=== PATIENT | male | born 1970 | race Caucasian/White ===

== ENCOUNTER 2017-06-27 11:52 | Emergency (ER) | payer OTHER ==
[2017-06-27 12:02] VITALS: RESP 16; TEMP 98.6; O2SAT 95
--- NOTE | 2017-06-27 13:22 | EDPHY ---
H & P Stated Complaint: L ear w/diminished hearing, numbness L jaw/neck since yesterday HPI/ROS: CHIEF COMPLAINT: Left-sided hearing loss HISTORY OF PRESENT ILLNESS: This patient is a healthy 46 y/o male complaining of sudden onset left-sided hearing loss. Yesterday, he was travelling in [place] and woke unable to hear well out of his right ear. He has history of sinus infections but his symptoms did not feel similar to these. He flew back to [place], and denies any otalgia during the flight. He did not have otalgia at any point before or after the flight either. He has history of tinnitus, which is unchanged. He has a pressure sensation as if he needs to pop his ear. He has not had difficulty with this in the past. He hears an "echoing" in his head and feels his hearing is half reduced in hie left ear. Yesterday evening, he had a tingling sensation in his jaw which is now resolved. He also feels imbalanced when he first stands from sitting, but is able to achieve equilibrium quickly. He felt nauseated from this this morning and took Dramamine for relief. He denies vomiting, chest pain, shortness of breath, fever, headache, confusion, seizures, or other associated symptoms. REVIEW OF SYSTEMS: A ten point review of systems was performed and is negative with the exception of the items mentioned in the HPI. Past medical history: Tinnitus. Past surgical history: Noncontributory. Family history: Noncontributory. Social history: Works in construction. Nonsmoker. Regular marijuana use. Former alcohol abuse, now sober. General Appearance: Alert. Vital signs reviewed. Blood pressure 135/98 Head: Normocephalic. No mastoid tenderness. Eyes: Pupils equal and round, no conjunctival injection, no discharge. Anicteric. ENT, Mouth: Tympanic membrane and external auditory canal are normal in appearance. Mucous membranes are moist, no oropharyngeal erythema or edema. Neck: No lymphadenopathy, supple. No carotic bruits. Respiratory: Lungs are clear to auscultation; no wheezes, rales, or rhonchi. Cardiovascular: Regular rate and rhythm; no murmur, rub, or gallop. Gastrointestinal: Abdomen is soft and nontender, no masses or organomegaly, bowel sounds normal. Skin: Warm and dry, no rashes on exposed skin, normal color. Back: Nontender to palpation over the thoracolumbar spine. No CVAT. Extremities: No lower extremity edema, no calf tenderness or swelling. Neurological: Alert and oriented. Moving all four extremities easily and equally. Cranial nerves II through XII are examined and are intact (visual acuity not tested) except for decreased hearing on left to finger rub test. Strength is 5 over 5 bilaterally with testing of all major motor groups. Sensation is intact to light touch over all 4 extremities. Deep tendon reflexes are 2+ in the biceps and knees bilaterally. Gait is normal. Finger-to -nose is performed accurately. Psychiatric: Normal affect. - Personal History Current Tetanus Diphtheria and Acellular Pertussis (TDAP): Yes - Medical/Surgical History Hx Asthma: No Hx Chronic Respiratory Disease: No Hx Diabetes: No Hx Cardiac Disease: No Hx Renal Disease: No Hx Cirrhosis: No Hx Alcoholism: No Hx HIV/AIDS: No Hx Splenectomy or Spleen Trauma: No Other PMH: neg per pt - Social History Smoking Status: Never smoked Constitutional: Initial Vital Signs Temperature (C) 37 C 06/27/17 11:59 Heart Rate 75 06/27/17 11:59 Respiratory Rate 16 06/27/17 11:59 Blood Pressure 135/98 H 06/27/17 11:59 O2 Sat (%) 95 06/27/17 11:59 O2 Delivery Mode Room Air Allergies/Adverse Reactions: No Known Allergies Allergy (Verified 06/27/17 11:59) Home Medications: Medication Instructions Recorded predniSONE 20 mg PO DAILY #3 tablet 06/27/17 Medical Decision Making - Diagnostics Imaging: Discussed imaging studies w/ call center coordinator Radiologist ED Course/Re-evaluation: This 46 year-old male with history of tinnitus presents with left-sided sudden onset hearing loss yesterday morning. Exam reveals decreased hearing on the left to finger rub test. The tympanic membrane and external auditory canal are normal in appearance. Plan for MRI brain attn. IACs and MRA head to evaluate acute intracranial processes. MRI brain and MRA head negative for acute processes. Plan to discharge home in good condition with referral to ENT for further evaluation. Plan to administer 60mg PO Prednisone. He will call ENT Thursday for an appointment. Return precautions discussed. He is comfortable with this plan. Considered a differential diagnosis that includes but is not limited to CVA, tumor such as vestibular schwannoma, MS, many years, migraine phenomenon. - Data Points Medications Given: Discontinued Medications Prednisone (Prednisone) 60 mg PO EDNOW ONE Stop: 06/27/17 16:31 Last Admin: 06/27/17 16:41 Dose: 60 mg Departure - Departure Disposition: Home, Routine, Self-Care Clinical Impression: Left-sided sensorineural hearing loss Qualifiers: Contralateral hearing status: unrestricted hearing on contralateral side Qualified Code(s): H90.42 - Sensorineural hearing loss, unilateral, left ear, with unrestricted hearing on the contralateral side Condition: Good Instructions: Hearing Loss (ED) Additional Instructions: 1. Follow up with an ear, nose, and throat specialist for further evaluation of your sudden hearing loss. Call Thursday for an appointment. Let the office know that you were seen in the emergency room and referred to ENT for follow up. Take the prednisone as prescribed--60 mg tomorrow. You received 60 mg in the emergency department today. 2. Return to the emergency department for recurring numbness or tingling in your face, severe headache, neck pain, or ear pain, discharge from the ear, or other worsening of condition or further concerns. Referrals: Rico Tomas MD [Medical Doctor] - As per Instructions Otto Baca MD [Medical Doctor] - As per Instructions Prescriptions: predniSONE 20 mg PO DAILY #3 tablet Report Scribed for: Sherly Amos Report Scribed by: Mayra Rico Date of Report: 06/27/17 Time of Report: 13:53 Physician Review and Approval Statement: 06/27/17 13:21 Portions of this note were transcribed by the pediatrician/medical doctor. I, Dr. Sherly Amos, personally performed the history, physical exam, and medical decision- making; and confirmed the accuracy of the information in the transcribed note.
[2017-06-27] MEDS ORDERED: predniSONE 20 MG TAB PO ONE (16:30)
[2017-06-27 16:49] VITALS: BP 135/91; PULSE 61
== END 2017-06-27 16:49 | disposition home or self-care (01) ==
DX: H90.42 Sensorineural hearing loss, unilateral, left ear, with unrestricted hearing on the contralateral side (principal)
CPT/HCPCS: J7512

== ENCOUNTER 2017-10-09 19:16 | Emergency (ER) | payer OTHER ==
--- NOTE | 2017-10-09 19:21 | EDPHY ---
H & P Time Seen by Provider: 10/09/17 19:21 HPI/ROS: CHIEF COMPLAINT: Nausea, vomiting, diarrhea, mild fatigue and confusion HISTORY OF PRESENT ILLNESS: The patient presents to the ED with a 1 day history of nausea, vomiting and diarrhea. Associated with the symptoms are mild fatigue and confusion. The patient reports that he has been recently trying different medications for treatment of anxiety. The patient reportedly has been on sertraline for the past several weeks. The patient denies any recent antibiotic use. He denies any travel outside the [place]. The patient has been taking tramadol for tooth pain. REVIEW OF SYSTEMS: A comprehensive 10 point review of systems is otherwise negative aside from elements mentioned in the history of present illness. Source: Patient Exam Limitations: No limitations - Medical/Surgical History Hx Asthma: No Hx Chronic Respiratory Disease: No Hx Diabetes: No Hx Cardiac Disease: No Hx Renal Disease: No Hx Cirrhosis: No Hx Alcoholism: No Hx HIV/AIDS: No Hx Splenectomy or Spleen Trauma: No Other PMH: neg per pt - Social History Smoking Status: Never smoked - Physical Exam Exam: General Appearance: Alert, no distress Eyes: Pupils equal and round no pallor or injection ENT, Mouth: Mucous membranes moist Respiratory: There are no retractions, lungs are clear to auscultation Cardiovascular: Regular rate and rhythm Gastrointestinal: Abdomen is soft and nontender, no masses, bowel sounds normal Neurological: 5/5 strength all 4 extremities Skin: Warm and dry, no rashes Musculoskeletal: Neck is supple nontender Extremities: symmetrical, full range of motion Psychiatric: Patient is oriented X 3, there is no agitation Constitutional: Initial Vital Signs Temperature (C) 37.1 C 10/09/17 19:46 Heart Rate 73 10/09/17 19:46 Respiratory Rate 18 10/09/17 19:46 Blood Pressure 139/88 H 10/09/17 19:46 O2 Sat (%) 98 10/09/17 19:46 O2 Delivery Mode Room Air Allergies/Adverse Reactions: No Known Allergies Allergy (Verified 10/09/17 19:48) Home Medications: Medication Instructions Recorded Propranolol HCl 10/09/17 Sertraline HCl 10/09/17 traMADol 10/09/17 Medical Decision Making ED Course/Re-evaluation: The patient presents to the ED with a 1 day history of nausea vomiting and diarrhea. The patient is also experiencing some symptoms of mild confusion. He has recently started taking tramadol in addition to an SSRI. The patient's abdominal examination is benign. He received 2 L of normal saline in the emergency department. The patient is noted to have leukocytosis which is felt to be secondary to his gastroenteritis not indicative of a serious bacterial infection or acute intra-abdominal process. - Data Points Laboratory Results: Laboratory Results 10/09/17 19:40 10/09/17 19:40 10/09/17 10/09/17 19:40 19:40 WBC 16.72 10^3/uL H 10^3/uL (3.80-9.50) RBC 4.98 10^6/uL 10^6/uL (4.40-6.38) Hgb 15.1 g/dL g/dL (13.7-17.5) Hct 44.2 % % (40.0-51.0) MCV 88.8 fL fL (81.5-99.8) MCH 30.3 pg pg (27.9-34.1) MCHC 34.2 g/dL g/dL (32.4-36.7) RDW 12.7 % % (11.5-15.2) Plt Count 352 10^3/uL 10^3/uL (150-400) MPV 8.8 fL fL (8.7-11.7) Neut % (Auto) 81.1 % H % (39.3-74.2) Lymph % (Auto) 13.9 % L % (15.0-45.0) [place] % (Auto) 3.9 % L % (4.5-13.0) Eos % (Auto) 0.3 % L % (0.6-7.6) Baso % (Auto) 0.3 % % (0.3-1.7) Nucleat RBC Rel Count 0.0 % % (0.0-0.2) Absolute Neuts (auto) 13.56 10^3/uL H 10^3/uL (1.70-6.50) Absolute Lymphs (auto) 2.32 10^3/uL 10^3/uL (1.00-3.00) Absolute Monos (auto) 0.66 10^3/uL 10^3/uL (0.30-0.80) Absolute Eos (auto) 0.05 10^3/uL 10^3/uL (0.03-0.40) Absolute Basos (auto) 0.05 10^3/uL 10^3/uL (0.02-0.10) Absolute Nucleated RBC 0.00 10^3/uL 10^3/uL (0-0.01) Immature Gran % 0.5 % % (0.0-1.1) Immature Gran # 0.08 10^3/uL 10^3/uL (0.00-0.10) Sodium 136 mEq/L mEq/L (135-145) Potassium 4.0 mEq/L mEq/L (3.5-5.2) Chloride 97 mEq/L mEq/L (97-110) Carbon Dioxide 28 mEq/l mEq/l (22-31) Anion Gap 11 mEq/L mEq/L (8-16) BUN 17 mg/dL mg/dL (7-23) Creatinine 1.0 mg/dL mg/dL (0.7-1.3) Estimated GFR > 60 Glucose 145 mg/dL H mg/dL (70-100) Calcium 9.5 mg/dL mg/dL (8.5-10.4) Total Bilirubin 1.3 mg/dL mg/dL (0.1-1.4) Conjugated Bilirubin 0.4 mg/dL mg/dL (0.0-0.5) Unconjugated Bilirubin 0.9 mg/dL mg/dL (0.0-1.1) AST 28 IU/L IU/L (17-59) ALT 46 IU/L IU/L (21-72) Alkaline Phosphatase 69 IU/L IU/L (38-126) Total Protein 6.9 g/dL g/dL (6.3-8.2) Albumin 4.3 g/dL g/dL (3.5-5.0) Lipase 94 IU/L IU/L (23-300) Medications Given: Discontinued Medications Sodium Chloride (Ns) 1,000 mls @ 0 mls/hr IV EDNOW ONE; Wide Open PRN Reason: Protocol Stop: 10/09/17 19:29 Last Admin: 10/09/17 19:37 Dose: 1,000 mls Ondansetron HCl (Zofran) 4 mg IVP EDNOW ONE Stop: 10/09/17 19:44 Last Admin: 10/09/17 19:44 Dose: 4 mg Departure - Departure Disposition: Home, Routine, Self-Care Clinical Impression: Gastroenteritis Condition: Good Instructions: Gastroenteritis (ED) Additional Instructions: 1. I would recommend taking ibuprofen and discontinuing tramadol as that may be cross reacting with some of your anxiety medications. 2. Please return to the ED for markedly worsening symptoms or other concerns. 3. Zofran as needed for nausea 4. Return the ED if your having worsening confusion, fever, intractable vomiting or pain. Referrals: Alma Wilson DO [Primary Care Provider] - As per Instructions
[2017-10-09] MEDS ORDERED: NS 1,000 ML IV ONE (19:28)
[2017-10-09] MEDS ORDERED: ONDANSETRON 4 MG/2 ML VIAL ONE (19:42)
[2017-10-09] MEDS ORDERED: ONDANSETRON 4 MG/2 ML VIAL IVP ONE (19:43)
[2017-10-09 19:46] LABS: PLATELET COUNT 352 10^3/uL (150-400)
[2017-10-09 20:38] VITALS: BP 118/79
== END 2017-10-09 20:38 | disposition home or self-care (01) ==
DX: K52.9 Noninfective gastroenteritis and colitis, unspecified (principal); E86.9 Volume depletion, unspecified
CPT/HCPCS: 96374; J2405

== ENCOUNTER 2017-11-16 06:09 | Emergency (ER) | payer OTHER ==
[2017-11-16] MEDS ORDERED: LORazepam 1 MG TAB PO ONE (06:21)
[2017-11-16] MEDS ORDERED: LORazepam 1 MG TAB ONE (06:21)
--- NOTE | 2017-11-16 06:24 | EDPHY ---
H & P Stated Complaint: SEVERE ANXIETY, UNABLE TO EAT OR SLEEP NAUSEA Time Seen by Provider: 11/16/17 06:21 HPI/ROS: HPI CHIEF COMPLAINT: Anxiety attack/panic attack HISTORY OF PRESENT ILLNESS: Patient very pleasant 47-year-old male, he suffers from anxiety and has had anxiety attacks in the past. He was recently started on stair truly in this past month when he saw his primary care doctor for acute anxiety. He presents emergency room this morning stating that he has been very anxious and unable to sleep last night. He states he has had anxiety really bad since Thursday and unable to sleep all weekend. He denies any chest pain or shortness of breath he denies wanting to hurt himself or anybody else he denies suicidal ideation. Decided to finally come to the emergency room as his anxiety has increased. Upon arrival here he states he is very anxious requesting anxiety medication. Past Medical History: History of anxiety attacks and panic attacks. Past Surgical History: No recent surgery Social History: Denies daily use drugs alcohol tobacco. Family History: Noncontributory ROS REVIEW OF SYSTEMS: A comprehensive 10 point review of systems is otherwise negative aside from elements mentioned in the history of present illness. Exam Constitutional appears anxious, triage nursing summary reviewed, vital signs reviewed, awake/alert. Eyes normal conjunctivae and sclera, EOMI, PERRLA. HENT normal inspection, atraumatic, moist mucus membranes, no epistaxis, neck supple/ no meningismus, no raccoon eyes. Respiratory clear to auscultation bilaterally, normal breath sounds, no respiratory distress, no wheezing. Cardiovascular rate normal, regular rhythm, no murmur, no edema, distal pulses normal. Gastrointestinal soft, non-tender, no rebound, no guarding, normal bowel sounds, no distension, no pulsatile mass. Genitourinary no CVA tenderness. Musculoskeletal no midline vertebral tenderness, full range of motion, no calf swelling, no tenderness of extremities, no meningismus, good pulses, neurovascularly intact. Skin pink, warm, & dry, no rash, skin atraumatic. Neurologic awake, alert and oriented x 3, AAOx3, moves all 4 extremities equally, motor intact, sensory intact, CN II-XII intact, normal cerebellar, normal vision, normal speech. Psychiatric anxious Heme/Lymph/Immune no lymphadenopathy. Differential Diagnosis: Includes but is not limited to in a particular order acute anxiety, panic attack, stress response, depression Medical Decision Making: Plan for this patient will give a dose of 1 mg p. O. Ativan and re-evaluate. Re-evaluation: 0719: Patient is re-evaluate he is feeling much better. He states his anxiety is well controlled with 1 mg p. O. Ativan. He is agreeable discharge. He denies any chest pain or shortness of breath denies focal numbness or tingling. Feeling much better in terms of anxiety. I will give him a limited prescription for Ativan 1 mg 5 tablets. He should follow up with his primary care doctor. He understands this. Additionally if he has any worsening symptoms questions concerns he should return to the emergency room Source: Patient - Personal History Current Tetanus/Diphtheria Vaccine: Yes Current Tetanus Diphtheria and Acellular Pertussis (TDAP): Yes - Medical/Surgical History Hx Asthma: No Hx Chronic Respiratory Disease: No Hx Diabetes: No Hx Cardiac Disease: No Hx Renal Disease: No Hx Cirrhosis: No Hx Alcoholism: No Hx HIV/AIDS: No Hx Splenectomy or Spleen Trauma: No Other PMH: neg per pt - Social History Smoking Status: Never smoked Constitutional: Initial Vital Signs Temperature (C) 36.6 C 11/16/17 06:13 Heart Rate 91 11/16/17 06:13 Respiratory Rate 18 11/16/17 06:13 Blood Pressure 120/102 H 11/16/17 06:13 O2 Sat (%) 97 11/16/17 06:13 O2 Delivery Mode Room Air Allergies/Adverse Reactions: No Known Allergies Allergy (Verified 11/16/17 06:15) Home Medications: Medication Instructions Recorded Ondansetron Odt [Zofran Odt] 4 mg PO Q4PRN PRN #20 tab 10/09/17 Sertraline HCl 10/09/17 LORazepam [Ativan] 1 mg PO DAILY #5 tablet 11/16/17 Medical Decision Making - Data Points Medications Given: Discontinued Medications Lorazepam (Ativan) 1 mg PO ONCE ONE Stop: 11/16/17 06:22 Last Admin: 11/16/17 06:22 Dose: 1 mg Departure - Departure Disposition: Home, Routine, Self-Care Clinical Impression: Anxiety Condition: Good Instructions: Anxiety (ED) Additional Instructions: 1. Return emergency room if develops worsening anxiety or questions or concerns. 2. Please follow up with her primary care doctor. 3. I have given you very limited supply of Ativan. Only take this medication if you're feeling very anxious. Referrals: Alma Wilson DO [Primary Care Provider] - As per Instructions Prescriptions: LORazepam [Ativan] 1 mg PO DAILY #5 tablet
[2017-11-16 07:33] VITALS: BP 139/92
== END 2017-11-16 07:33 | disposition home or self-care (01) ==
DX: F41.9 Anxiety disorder, unspecified (principal)

== ENCOUNTER 2017-12-07 07:04 | Emergency (ER) | payer OTHER ==
--- NOTE | 2017-12-07 07:19 | EDPHY ---
H & P Stated Complaint: Increased alcohol consumption over the last few days, anxiety , depression. Time Seen by Provider: 12/07/17 07:18 HPI/ROS: CHIEF COMPLAINT: Anxiety, alcohol relapse HISTORY OF PRESENT ILLNESS: The patient is a 47 y/o male with a history of anxiety complaining of anxiety and malaise after binge drinking alcohol over the last two days. He was seen here a couple weeks ago while sober for a similar complaint and felt improved after Ativan. He has been sober since March until two days ago when he relapsed and began drinking heavily. He says this was triggered by Father's Day and thinking about his father's . He denies suicidality. His last alcohol use was 21:00 last night, 10.5 hours ago. He currently feels "sick" and says, "I know what it's like to be hungover and I think I went too far." He denies fever, dyspnea, chest pain, recent illness, recent trauma. He does not think he is withdrawing and denies any history of withdrawal seizures. REVIEW OF SYSTEMS: A ten point review of systems was performed and is negative with the exception of the items mentioned in the HPI. 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 Recent heavy alcohol use following period of sobriety. PCP: Dr. Simms. Prior medical records reviewed including ED visit 11/16/17 for anxiety. General Appearance: Alert. Vital signs reviewed. Blood pressure 119/104 at triage. Eyes: Pupils equal and round, no conjunctival injection, no discharge. Anicteric. ENT, Mouth: Mucous membranes are moist, no oropharyngeal erythema or edema. Neck: No lymphadenopathy, supple. Respiratory: Lungs are clear to auscultation; no wheezes, rales, or rhonchi. Cardiovascular: Regular rate and rhythm; no murmur, rub, or gallop. Gastrointestinal: Abdomen is soft and nontender, no masses or organomegaly. Skin: Warm and dry, no rashes on exposed skin, normal color. Back: Nontender to palpation over the thoracolumbar spine. No CVAT. Extremities: No lower extremity edema, no calf tenderness or swelling. Neurological: Alert and oriented. Moving all four extremities easily and equally. Psychiatric: Anxious affect. - Personal History Current Tetanus Diphtheria and Acellular Pertussis (TDAP): Yes - Medical/Surgical History Hx Asthma: No Hx Chronic Respiratory Disease: No Hx Diabetes: No Hx Cardiac Disease: No Hx Renal Disease: No Hx Cirrhosis: No Hx Alcoholism: No Hx HIV/AIDS: No Hx Splenectomy or Spleen Trauma: No Other PMH: Depression.Anxiety - Social History Smoking Status: Never smoked Constitutional: Initial Vital Signs Temperature (C) 36.6 C 12/07/17 07:08 Heart Rate 67 12/07/17 07:08 Respiratory Rate 18 12/07/17 07:08 Blood Pressure 119/104 H 12/07/17 07:08 O2 Sat (%) 96 12/07/17 07:08 O2 Delivery Mode Room Air Allergies/Adverse Reactions: No Known Allergies Allergy (Verified 11/16/17 06:15) Home Medications: Medication Instructions Recorded Paxil 12/07/17 Medical Decision Making ED Course/Re-evaluation: This is an anxious-appearing 47 y/o male with a history of anxiety and alcoholism who presents with anxiety and malaise after heavy alcohol use over the weekend. Prior to this he was sober for several months. He is not tachycardic nor tremulous and does not appear to be in alcohol withdrawal. He is interested in sobriety and is open to going to the [facility]. Plan for IV, labs, and symptomatic management. 1L IV NS and 4mg IV Zofran ordered. He does not meet criteria for alcohol withdrawal medication at this time. EtOH serum level 24. Otherwise labs unremarkable. Reassessed patient. He is feeling improved and is willing to go to the [facility] for detox. He will be discharged with Librium and follow up instructions. Return precautions discussed. Differential Diagnosis: I considered a differential diagnosis that includes but is not limited to alcohol intoxication, alcohol withdrawal, pancreatitis, gastritis, anxiety, and suicidality. - Data Points Laboratory Results: Laboratory Results 12/07/17 07:40 12/07/17 07:40 Medications Given: Discontinued Medications Chlordiazepoxide (Librium 25 Mg Prepack#6) 1 btl TAKEHOME EDNOW ONE Stop: 12/07/17 10:19 Last Admin: 12/07/17 10:32 Dose: 1 btl Sodium Chloride (Ns) 1,000 mls @ 3,000 mls/hr IV ONCE ONE Stop: 12/07/17 08:19 Last Admin: 12/07/17 08:02 Dose: 1,000 mls Ondansetron HCl (Zofran) 4 mg IVP EDNOW ONE Stop: 12/07/17 08:01 Last Admin: 12/07/17 08:01 Dose: 4 mg Ondansetron HCl (Zofran) 4 mg IVP EDNOW ONE Stop: 12/07/17 09:36 Last Admin: 12/07/17 09:36 Dose: 4 mg Departure - Departure Disposition: Home, Routine, Self-Care Clinical Impression: Alcohol abuse Condition: Good Instructions: Chlordiazepoxide (By mouth), Abuse of Alcohol (ED) Additional Instructions: Go directly to the [facility] for detox support. Use Librium as prescribed if needed for alcohol withdrawal symptoms. Return to the ED for worsening of condition. Referrals: [facility] Detox 24 Hours [Outside] - As per Instructions Report Scribed for: Sherly Amos Report Scribed by: Jana Junior Date of Report: 12/07/17 Time of Report: 07:22 Physician Review and Approval Statement: 12/07/17 07:19 Portions of this note were transcribed by the medical surgery nurse. I, Dr. Sherly Amos, personally performed the history, physical exam, and medical decision- making; and confirmed the accuracy of the information in the transcribed note.
[2017-12-07 07:48] LABS: PLATELET COUNT 381 10^3/uL (150-400)
[2017-12-07] MEDS ORDERED: ONDANSETRON 4 MG/2 ML VIAL ONE (07:59)
[2017-12-07] MEDS ORDERED: NS 1,000 ML IV ONE (08:00)
[2017-12-07] MEDS ORDERED: ONDANSETRON 4 MG/2 ML VIAL IVP ONE ×2 (08:00→09:35)
[2017-12-07] MEDS ORDERED: CHLORDIAZEPOXIDE 25MG PREPK#6 BTL TAKEHOME ONE (10:18)
[2017-12-07 10:36] VITALS: BP 150/96
== END 2017-12-07 10:42 | disposition home or self-care (01) ==
LOC: EEVIPCON 07:04
DX: F10.10 Alcohol abuse, uncomplicated (principal)
CPT/HCPCS: 96374; G0480; J2405

== ENCOUNTER 2018-05-27 06:02 | Emergency (ER) | payer OTHER ==
[2018-05-27] MEDS ORDERED: KETOROLAC 15 MG/1 ML SDV ONE (06:24)
[2018-05-27] MEDS ORDERED: KETOROLAC 15 MG/1 ML SDV IVP ONE (06:25)
[2018-05-27] MEDS ORDERED: VANCOMYCIN HCL/NORMAL SALINE 250 ML IV ONE (06:47)
--- NOTE | 2018-05-27 06:49 | EDPHY ---
H & P Stated Complaint: Canelo gee infection worsening, started antibiotics last night, decreased ROM Time Seen by Provider: 05/27/18 06:29 HPI/ROS: HPI The patient presents with increased left knee pain and swelling since last 1 day. Yesterday, he was seen at an urgent care and diagnosed with cellulitis of his left upper leg. He was discharged on Keflex and has taken 3 doses of this. He had increasing pain and redness throughout the night. The redness expanded outside of the margins that were marked at the urgent care. He now presents with concerned that the antibiotic is not working. He has not had any fevers or chills. He has not had any vomiting. He has no prior history of similar. 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 REVIEW OF SYSTEMS 10 systems were reviewed and negative with the exception of the elements mentioned in the history of present illness. PMHx: Healthy, no prior history of cellulitis or abscess Soc Hx: Works as a clements PHYSICAL General Appearance: Alert, no distress Eyes: Pupils equal and round no pallor or injection ENT, Mouth: Mucous membranes moist Respiratory: Breathing comfortably Neurological: A&O, moves all extremities Skin: Warm and dry, no rashes Musculoskeletal: Inferior to left knee is a circular area of erythema, warmth, tender this, edema without any fluctuance present, measures about 12 cm in diameter Extremities: symmetrical, full range of motion Psychiatric: Patient is oriented X 3, there is no agitation Source: Patient Exam Limitations: No limitations - Personal History Current Tetanus/Diphtheria Vaccine: Yes Current Tetanus Diphtheria and Acellular Pertussis (TDAP): Yes Tetanus Vaccine Date: 2017 - Medical/Surgical History Hx Asthma: No Hx Chronic Respiratory Disease: No Hx Diabetes: No Hx Cardiac Disease: No Hx Renal Disease: No Hx Cirrhosis: No Hx Alcoholism: No Hx HIV/AIDS: No Hx Splenectomy or Spleen Trauma: No Other PMH: Depression.Anxiety - Social History Smoking Status: Never smoked Constitutional: Initial Vital Signs Temperature (C) 37.2 C 05/27/18 06:07 Heart Rate 80 05/27/18 06:07 Respiratory Rate 18 05/27/18 06:07 Blood Pressure 142/85 H 05/27/18 06:07 O2 Sat (%) 94 05/27/18 06:07 O2 Delivery Mode Room Air Allergies/Adverse Reactions: No Known Allergies Allergy (Verified 05/27/18 06:07) Home Medications: Medication Instructions Recorded Hydrocodone/Acetaminophen 05/27/18 Keflex 05/27/18 Sulfamethox/Tmp 800/160 mg 1 tab PO BID #14 tab 05/27/18 [Bactrim Ds] Medical Decision Making Procedures: Bedside left knee Ultrasound- performed and interpreted by me. Indication: Redness Findings: Cobblestoning is present without discrete fluid collection, no foreign body is seen Impression: Cobblestoning present Differential Diagnosis: 47-year-old male healthy presents with several days of left-sided knee pain, swelling, redness. On exam, he appears to have a cellulitis which is below the joint space and does not seem to involve the bursa. Bedside ultrasound was performed by me showing cobblestoning which is quite superficial. There is no area of fluid collection, thus I doubt abscess. I will treat him here with vancomycin and give him a prescription for Bactrim as I feel he may have community-acquired MRSA. I have encouraged him to continue taking the Keflex as well. I have given him return precautions. - Data Points Medications Given: Vancomycin/Sodium Chloride (Vancomycin 1 Gm (Premix)) 250 mls @ 250 mls/hr IV EDNOW ONE PRN Reason: Protocol Stop: 05/27/18 07:46 Last Admin: 05/27/18 06:55 Dose: 250 mls Discontinued Medications Ketorolac Tromethamine (Toradol) 15 mg IVP EDNOW ONE Stop: 05/27/18 06:26 Last Admin: 05/27/18 06:26 Dose: 15 mg Departure - Departure Disposition: Home, Routine, Self-Care Clinical Impression: Cellulitis Qualifiers: Site of cellulitis: extremity Site of cellulitis of extremity: lower extremity Laterality: left Qualified Code(s): L03.116 - Cellulitis of left lower limb Condition: Good Instructions: Cellulitis (ED) Additional Instructions: Please continue to take your antibiotic that your prescribed earlier. You should add this antibiotic on top of it. You should return to the emergency department if your worse in any way. Referrals: Porsha Pineda MD [Medical Doctor] - As per Instructions Prescriptions: Sulfamethox/Tmp 800/160 mg [Bactrim Ds] 1 tab PO BID #14 tab
[2018-05-27 08:09] VITALS: BP 148/86
== END 2018-05-27 08:51 | disposition home or self-care (01) ==
DX: L03.116 Cellulitis of left lower limb (principal); F41.9 Anxiety disorder, unspecified; F32.9 Major depressive disorder, single episode, unspecified
CPT/HCPCS: 96365; J1885; J3370

== ENCOUNTER 2018-08-19 14:52 | Emergency (ER) | payer OTHER ==
[2018-08-19 15:05] VITALS: BP 130/85
[2018-08-19] MEDS ORDERED: CEPHALEXIN 500 MG CAP PO ONE (16:13)
--- NOTE | 2018-08-19 16:13 | EDPHY ---
H & P Time Seen by Provider: 08/19/18 16:05 HPI/ROS: CHIEF COMPLAINT: Left index finger table saw injury HISTORY OF PRESENT ILLNESS: 48-year-old [id number] male with up-to- date tetanus sustained accidental table saw injury to his left index finger distal phalanx primarily on the dorsal aspect shortly prior to arrival he was working on a carpentry project. No paresthesia. PHYSICAL EXAM (Prior to examination, patient consented to physical exam, hands were washed and my usual and customary physical exam procedures followed) 1) GENERAL: Well-developed, well-nourished, alert and oriented. Appears to be in no acute distress. 2) HEAD: Normocephalic 3) HEENT: sclera anicteric 4) LUNGS: Breathing comfortably. 5) SKIN: Left index finger distal phalanx dorsal aspect skin avulsion measuring 1 cm x 1 cm. Does involve the nail bed. No signs of infection. No gross foreign bodies. Negative kanavel 6) MUSCULOSKELETAL: FDP FDS intact. Extensor function intact. 7) NEUROLOGIC: Two-point discrimination intact Smoking Status: Never smoked Constitutional: Initial Vital Signs Temperature (C) 37.3 C 08/19/18 15:03 Heart Rate 68 08/19/18 15:03 Respiratory Rate 16 08/19/18 15:03 Blood Pressure 130/85 H 08/19/18 15:03 O2 Sat (%) 94 08/19/18 15:03 O2 Delivery Mode Room Air Allergies/Adverse Reactions: No Known Allergies Allergy (Verified 08/19/18 15:03) Home Medications: Medication Instructions Recorded Cephalexin [Keflex] 500 mg PO TID 5 Days cap 08/19/18 MDM/Departure - MDM Procedures: Procedure: Laceration repair. I explained the indications, risks and benefits for both laceration repair and anesthetic administration. Verbal consent was obtained from the patient. The injury/wound on the left index finger was anesthetized using 0.5% bupivicaine without epinephrine digital nerve block. After anesthetic administered the patient was observed for a period of time and had no apparent adverse effects. The wound was cleaned, prepped, draped in normal sterile fashion and explored to its base. No foreign body seen, no foreign bodies palpated. There were no deep structures involved. No tendon injury was identified. Sterile dressing antibiotic ointment applied. Wound will be allowed to heal via secondary intention. The procedure was performed by myself. Patient has been informed that scarring will occur, although efforts have been made to minimize this. Medications Given: Discontinued Medications Cephalexin HCl (Keflex) 500 mg PO EDNOW ONE PRN Reason: Protocol Stop: 08/19/18 16:14 Last Admin: 08/19/18 16:28 Dose: 500 mg - Depart Disposition: Home, Routine, Self-Care Clinical Impression: Skin avulsion Condition: Good Instructions: Skin Avulsion (ED) Additional Instructions: Return to the ER if you develop redness, swelling, discharge, warmth to the wound, red streaks going up your arm, or any other symptoms that concern you. Prescriptions: Cephalexin [Keflex] 500 mg PO TID 5 Days cap Referrals: Charlie Dean MD [Medical Doctor] - 2-3 days, call for appt.
[2018-08-19] MEDS ORDERED: OXYCODONE/APAP 5/325 TAB PO ONE (17:00)
== END 2018-08-19 17:04 | disposition home or self-care (01) ==
DX: S61.301A Unspecified open wound of left index finger with damage to nail, initial encounter (principal); W31.2XXA Contact with powered woodworking and forming machines, initial encounter